=== PATIENT | female | born 1965 | race Caucasian/White ===

== ENCOUNTER → 2025-10-14 | Emergency (ER) | payer OTHER ==
[~2025-10-14] VITALS: Ht 167.6 cm; Wt 58.1 kg
[~2025-10-14] MED LIST: DEXTROSE 5 % AND 0.9 % NACL 1,000 ML IV SCH; EZALLOR SPRINKLE5 MG; FAMOTIDINE/PF 20 MG/2 ML VIAL IV ONE; THIAMINE HCL 100 MG/ML 2 ML VIAL IV ONE; VISTARIL50 MG/ML PO
[2025-10-14 20:47] LABS: BASO % 0.6 % (0.1-1.2); EOS # 0.00 (0.04-0.54); EOS % 0.0 % (0.7-7.0); LYMPH # 0.81 (1.18-3.74); LYMPH % 16.1 % (19.3-53.1); MEAN PLATELET VOLUME 10.30 fl (9.4-12.4); MONO # 0.52 (0.24-0.82); MONO % 10.3 % (4.7-12.5); NEUT # 3.66 (1.56-6.13); NEUT % 72.8 % (34.0-71.1); RED CELL DISTRIBUTION WIDTH 12.5 % (11.6-14.4)
[2025-10-14 21:16] LABS: COVID-19 AG NEGATIVE (NEGATIVE)
[2025-10-14 21:28] LABS: ERYTHROCYTE SEDIMENTATION RATE 11 mm/hr (0-30)
[2025-10-14 21:50] LABS: ALT/SGPT 42 U/L (12-78); AST/SGOT 40 U/L (15-37); BILIRUBIN TOTAL 0.68 mg/dL (0.3-1.2); BUN CREA RATIO 12 (7.0-25.0); CREATININE SERUM 0.58 mg/dL (0.55-1.02); GFR 105.34; GLOBULINA 3.5 G/DL (2.4-3.5); GLUCOSE FASTING 106 mg/dL (65-100); OSMOLALITY SERUM 278 MOSM/KG (275-295)
[2025-10-14 21:55] LABS: CKMB < 1.0 NG/ML (0.5-3.6)
[2025-10-14 22:08] LABS: URINE APPEARANCE Clear; URINE BILIRRUBIN Negative (NEGATIVE); URINE BLOOD Negative; URINE COLOR Yellow; URINE GLUCOSE Negative (NEGATIVE); URINE KETONE 15 (NEGATIVE); URINE LEUKOCYTE Negative; URINE NITRATE Negative; URINE PROTEIN Negative (NEGATIVE); URINE UROBILINOGEN 0.2 E.U./dl
[2025-10-14 22:12] LABS: URINE BACTERIA 87.8 uL (0.0-1933); URINE EPITHELIAL CELLS 4.9 uL (0.0-38.8); URINE WBC 3.3 uL (0.0-23.2)
[2025-10-14 22:24] LABS: URINE CAST 0.00 uL (0.0-1.40); URINE RBC 1.5 uL (0.0-20.8)
== END | disposition home or self-care (01) ==
LOC: ER 16:32
PROVIDERS: Student in an Organized Health Care Education/Training Program
DX: F41.0 Panic disorder [episodic paroxysmal anxiety] (principal); R42 Dizziness and giddiness; E78.49 Other hyperlipidemia; F10.20 Alcohol dependence, uncomplicated; F10.239 Alcohol dependence with withdrawal, unspecified; F10.229 Alcohol dependence with intoxication, unspecified; R00.0 Tachycardia, unspecified; Z20.822 Contact with and (suspected) exposure to COVID-19